=== PATIENT | male | born 1965 | race Caucasian/White ===

== ENCOUNTER 2018-02-14 18:00 | Outpatient (RCR) | payer OTHER, SELFPAY ==
--- NOTE | 2018-01-17 18:58 | HP.PTEVAL_ITS ---
Patient's Visit Information GEMA MORLEY is a 52 year old M referred to Physical Therapy by Bernardo Goldsmith with a diagnosis of B lateral epicondylitis. Date of Evaluation: 01/17/18 Physical Therapist: Marlon Vizcarra DPT, OC - Visit Plan Frequency: 1x/Week Duration: 4-6 Weeks Plan: 1x/week for 4-6 as needed... Pt doing excellent since injection adn ionto not covered by insurance so we darren hold on ionto. STM to B wrist extensors, strech same, progress eccentric wrist extensor strength(blue band) and postural strength. Appropriate education on activity modification. May do US nonthermal if pain returns and consider cock up brace if pain returns. - Subjective Subjective: Over a year ago, started with R elbow pain in response to overworking pulling rocks out of flower bed.. Injections really helpand had them last week. Left one only got severe 3 months after L but both may have started with rock pulling incident. He is right handed. Had 3 in the R and 2 in the left. No other treatments. 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 Enjoys biking as a hobby Has not started this year yet but did get sore last year. Tried brace but did not help. Sleep is interrupted when it is bad. - Pain R elbow Pain Intensity (Out of 10): 0 Pain Intensity Range: 0, 7 Comment: was constant eventually L elbow Pain Intensity (Out of 10): 0 Pain Intensity Range: 0, 5 - Objective R>L tender at wrist extensor origin and lat epicondyle elbow very slight. Some pain to stretch these muscles with end range wrist flexion and elbow extension but slight today. Full aROM at neck, shoulder and elbow and wrist. Strength at shoulder 4+ B, elbow 4+, wirsit flexion 4/5 B with mild discomfort transiently and 4+ flexion. 2/3 bi and tri reflexes. Sensation WNL to gross light touch in UE. - c/s compression. + R>L active and passive lat epicondylitis tests. - Goals Goal 1:: Pt feel 100% better for 4 weeks adn no pain. Goal Time Frame: 2-4 Weeks Goal 2:: Pt I in approp HEP for stretching and approiate strength Goal Time Frame: 4-6 Weeks Goal 3:: Full work and sleep schedule without problems. Goal Time Frame: 4-6 Weeks - Rehabilitation Potential Physical Therapy Diagnosis: B lateral epicondylitis. Rehabilitation Potential: Fair - Anticipated Interventions Patient/Client Instruction: Educate patient on: Condition, Plan of Care For the Purpose of:: To decrease pain Therapeutic Exercise to Include: Strength training, Flexibilty training, Passive ROM For the Purpose of:: To decrease pain, To improve muscle performance and motor function, To improve ability of physical actions for home/community/work/leisure Manual Therapy Techniques to Include: Soft tissue mobilization For the Purpose of:: To improve nutrient delivery to tissue, To increase oxygenation perfusion, To improve muscle performance and motor function Cryotherapy (ice pack, ice massage): Yes - as needed. Ultrasound (thermal/non thermal): Yes - nonthermal B elbow epicondyles lat Comment: if pain returns. For the Purpose of:: To decrease pain, To decrease swelling/inflammation Thank you for the opportunity to evaluate your patient. For Medicare and Medicare HMO plans, please review the plan of care and approve it. It will need to be FAXED BACK to us at [phone] for Medicare purposes. Please let me know if there are questions or concerns regarding this plan of care. Physician Signature: Date:
--- NOTE | 2018-02-14 18:58 | HP.PTDCSUM ---
HP - PT D/C Summary It has been my pleasure to treat GEMA MORLEY under orders from Bernardo Goldsmith, for the diagnosis of B lateral epicondylitis for a total of 5 visit(s). Discharge Date: 02/14/18 Please see the following information for a summary of their discharge status. - Subjective Subjective: 3-4/10 for the last couple days. Mild trouble sleeping last night. Mostly lateral pain but some medial also on R side, L side is 100%. Jogging is OK, walking brings more pain. Stretching and eccentric strengthening at home. Not scheduled with Dr. Goldsmith. Did start cutting grass with R UE gripper for self propelling, that may have made him worse last couple weeks. - Pain R elbow Pain Intensity (Out of 10): 3 L elbow Pain Intensity (Out of 10): 0 - Overall Improvement % Improvement: 60 - Objective Objective/Function: Slight tenderness R lat epicondyle at wrist extensor origin. Full wrist and elbow AROM without pain. 4+/5 wrist ext strength, others 5/5, slight discomfort with 3 digit extension. OVERALL DOING OK, SKEPTICAL THAT PAIN MAY RETURN. - Goals Goal 1:: Pt feel 100% better for 4 weeks adn no pain. Goal Progress: pain may be returning Goal 2:: Pt I in approp HEP for stretching and approiate strength Goal Progress: Goal Met Goal 3:: Full work and sleep schedule without problems. Goal Progress: Progressing - Plan Plan: D/C patient request. - D/C Information Discharge Comments: Pt doing well but skelptical that pain may be returning. He wishes to cotninue eccentric strength adn stretching and being mindful of ergonomics and f/u with doctor for next step if pain returns. Dry needling and cock up splint should be options if pain returns and no other medical options available. If there are questions or concerns regarding this patient's physical therapy, please feel free to call me at [phone]. Thank you for the referral of this patient. Sincerely, Marlon Vizcarra, DPT, OC
== END 2018-02-14 19:00 | disposition home or self-care (01) ==
LOC: PT 18:00
PROVIDERS: Family Provider Family Medicine; PCP Family Medicine; Visit Provider Family Medicine
DX: M77.12 Lateral epicondylitis, left elbow (principal); M77.11 Lateral epicondylitis, right elbow
CPT/HCPCS: 97110; 97140; 97161; 97530

== ENCOUNTER → 2018-11-14 14:46 | Outpatient (CLI) | payer OTHER, SELFPAY ==
--- NOTE | 2018-11-14 14:50 | RAD_ITS ---
STUDY: X-RAY - LEFT ELBOW REASON FOR EXAM: Male, 53 years old. Epicondylitis lateral left elbow TECHNIQUE: 3 view(s) of the elbow. COMPARISON: None. FINDINGS: Normal visualized humerus, radius and ulna. Normal radiocapitellar and ulnotrochlear articulations. The soft tissue structures are unremarkable. RAD/Elbow min 3 Views IMPRESSION: Normal x-ray examination of the elbow. Electronically Signed: Eduard Mandel DO at 8:29 EST Tel , Service support ,
== END ==
PROVIDERS: Family Provider Family Medicine; PCP Family Medicine; Referring Provider Family Medicine; Visit Provider Family Medicine
DX: M77.12 Lateral epicondylitis, left elbow (principal)
CPT/HCPCS: 73080

== ENCOUNTER → 2018-11-28 10:16 | Outpatient (CLI) | payer OTHER, SELFPAY ==
--- NOTE | 2018-11-28 10:45 | MRI_ITS ---
STUDY: MRI LEFT ELBOW REASON FOR EXAM: Left elbow pain, decreased arm strength for 2 years, no specific injury. TECHNIQUE: Standardized fat and water weighted pulse sequences were obtained in all 3 orthogonal planes. COMPARISON: Radiographs 11/14/2018. FINDINGS: Normal radio-capitellum articulation. Normal radial collateral ligamentous complex. There is peritendinitis and an undersurface partial tear of the common extensor tendon (inversion recovery coronal images 10-12). Normal ulnotrochlear articulation. Normal ulnar collateral ligamentous complex. Normal common flexor tendon. The cubital tunnel is normal, with a normal ulnar nerve. Normal biceps tendon and distal insertion. Normal lacertus fibrosis. Normal brachialis musculotendinous insertion. Normal triceps tendon and teno-osseous insertion. Normal olecranon process. The visualized distal humerus, proximal radius, and ulna are normal. The visualized muscles of the distal arm and proximal forearm are normal. The soft tissue structures are unremarkable. MRI/Upper Ext Joint Only(Routine) IMPRESSION: Lateral epicondylitis with peritendinitis and undersurface partial tear of the common extensor tendon. Electronically Signed: James Warren MD at 13:15 EST Tel , Service support ,
== END ==
PROVIDERS: Family Provider Family Medicine; PCP Family Medicine; Referring Provider Family Medicine; Visit Provider Family Medicine
DX: M77.12 Lateral epicondylitis, left elbow (principal)
CPT/HCPCS: 73221

== ENCOUNTER 2019-04-17 18:30 | Outpatient (RCR) | payer OTHER, SELFPAY ==
--- NOTE | 2019-02-08 18:09 | HP.OTEVAL ---
Patient's Visit Information GEMA MORLEY is a 53 year old M, referred to Occupational Therapy by SALENA MORELAND, with a diagnosis of L lateral epicondylitis. Date of Evaluation: 02/08/19 Occupational Therapist: Elizabeth Olsen - Subjective Subjective: Pt seen for initial occupational therapy evaulation for L lateral epicondylitis. Pt had sx 01/26/19 for L elbow lateral epicondylitis and has wrist brace to wear for 6 wks. Pt R hand dominent. 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 Pt very active running, biking and playing basketball prior to sx. - Pain L elbow 2 Pain Intensity Range: 2, 5 - Objective Objective/Observation: decreased AROM L elbow, increased pain with movement, edema L elbow - ROM Elbow: R -15/120, L 0/135 - Strength Demand Manager: R 87# L DNT Lateral Pinch: R 24#, L DNT Tripod Pinch: R 19 #, L DNT - Edema Elbow: L elbow edema - Sensation Sensation Comments: Numbness at incision sight L elbow - Quick DASH-Disab of Arm,Shoulder& Hand Quick DASH Score: 50.0000 - Goals Goal:: Pt will progress w/ L hand teacher of family and consumer science strength to 70# by d/c from OT services. Goal:: Pt will progress w/ L elbow extension AROM by 15' and L elbow flexion AROM by 15' to increase indep w/ functional living tasks. Goal:: Pt will demo no pain greater than 1/10 L elbow w/ movement by d/c from OT services. Goal:: Pt will be educated on scar mngmt techniques L elbow with good understanding and demo 100%x. Goal:: Pt will be educated on L UE HEP with good understanding and demo 100%x. - Rehabilitation General Assessment: Pt demo decreased AROM L elbow, decreased strength L UE, increased pain with movement of L UE. Pt would benefit from direct occupational therapy services to complete gentle ROM elbow/wrist, scar massage techniques to L elbow incision, L elbow and wrist strengthening when appropriate, pain control, decrease edema, educate on appropriate HEP. Rehabilitation Potential: Excellent - Anticipated Interventions Anticipated Interventions: A/AAROM/PROM, Strengthening, Edema Control, Scar Care, Modalities, Orthoses, Joint Protection/Energy Conservation, Education re Diagnosis, Home Program - Visit Plan Frequency: 1-2x /Week Duration: 4-6 Weeks General Plan: gentle ROM elbow/wrist, follow dr. stokes, scar massage techniques, L elbow, wrist strengthening when appropriate, pain control, decrease edema, educate on appropriate HEP. TEXT: Thank you for the opportunity to evaluate your patient. For Medicare and Medicare HMO plans, please review the plan of care and approve it. It will need to be FAXED BACK to us at [phone] for Medicare purposes. Please let me know if there are questions or concerns regarding this plan of care. Physician Signature: Date:
--- NOTE | 2019-03-07 14:24 | HP.OTCOM ---
OT Communication Note 03/07/[address] SALENA MORELAND Pt has been completing gentle ROM to L UE all planes. Pt demonstrates good understanding and follow through with ROM exercises to complete on his own. Pt educated on scar mngmt techniques and scar massage L elbow. Pt demo increased AROM L elbow 0'/142'. Sincerely, Elizabeth Olsen Contact Information
--- NOTE | 2019-03-21 12:29 | HP.OTREVAL ---
SALENA MORELAND, It has been my pleasure to treat GEMA MORLEY over the last 5 visits for L lateral epicondylitis. Please see the progress note below for an update on the occupational therapy plan of care! Subjective: Pt arrived stating no pain L elbow, states hasn't been doing his exercises at home because he has been busy moving things out of his fathers house, states his elbow hurt the night before but he had been moving a grandfather clock. Objective/Function: increase L UE strength, gambling box person strength L hand 87#, R hand 110#. Plan Frequency: 1-2x /Week Duration: 4-6 Weeks Plan: see re-serena Goals - Goals Goal:: Pt will progress w/ L hand gambling box person strength to 95# by d/c from OT services. Goal:: Pt will progress w/ L elbow extension AROM by 15' and L elbow flexion AROM by 15' to increase indep w/ functional living tasks. Goal:: Pt will demo no pain greater than 1/10 L elbow w/ movement by d/c from OT services. Goal:: Pt will be educated on scar mngmt techniques L elbow with good understanding and demo 100%x. Goal:: Pt will be educated on L UE HEP with good understanding and demo 100%x. Anticipated Interventions Anticipated Interventions: A/AAROM/PROM, Strengthening, Edema Control, Scar Care, Modalities, Orthoses, Joint Protection/Energy Conservation, Education re Diagnosis, Home Program Please do not hesitate to contact me at [phone] by phone or if you have questions or concerns regarding this new plan of care! Sincerely, Elizabeth Olsen
--- NOTE | 2019-09-05 14:32 | HP.OT.NRP ---
HP - Discharge Summary - Patient Information GEMA MORLEY was seen in my office for initial evaluation on 02/08/19. The following Plan of Care was established for this patient: Initial Frequency: 1-2x /Week Initial Duration: 4-6 Weeks Plan: see re-eval - Anticipated Interventions Anticipated Interventions: A/AAROM/PROM, Strengthening, Edema Control, Scar Care, Modalities, Orthoses, Joint Protection/Energy Conservation, Education re Diagnosis, Home Program This patient was last seen in our office 04/17/19. Pertinent comments regarding their Occupational therapy will appear below: Pt last seen for OT 04/17/19 for L lateral epicondyilitis repair. Pt doing well and no longer required skilled OT services, therefore pt non-returning OT. D/C OT POC. At this point I will be discontinuing this patient from occupational therapy. I would be happy to see this patient again in the future if found appropriate by the physician. Thank you! Elizabeth Olsen
== END 2019-04-17 19:00 | disposition home or self-care (01) ==
LOC: OT 18:30
PROVIDERS: Family Provider Family Medicine; PCP Family Medicine
DX: M77.12 Lateral epicondylitis, left elbow (principal)
CPT/HCPCS: 97110; 97140; 97166; 97168; 97530

== ENCOUNTER → 2020-07-10 13:45 | Outpatient (CLI) | payer OTHER, SELFPAY | PROVIDERS: PCP Family Medicine; Referring Provider Family Medicine; Visit Provider Family Medicine | DX: Z20.828 Contact with and (suspected) exposure to other viral communicable diseases (principal) | CPT/HCPCS: 87635; U0003 ==

== ENCOUNTER → 2022-01-19 | Outpatient (CLI) | payer OTHER, SELFPAY ==
[2022-01-19 17:45] LABS: Bacteria 0 SEEN /hpf (None Seen); Mucous, Urine 0 SEEN /hpf (<or=2+); Squamous Epithelial Cells - UA 0 SEEN /hpf (0-5); White Blood Cells 0 SEEN /hpf (0-5)
[2022-01-19 18:25] LABS: Color, Urine Yellow (Yellow); Glucose, Dipstick Normal (Normal); Ketone-Dipstick Negative (Negative); Leukocyte Esterase-Dipstick Negative /ul (Negative); Nitrite-Dipstick Negative (Negative); Occult Blood-Urine 50 /ul (Negative); Protein-Dipstick Negative (Negative); Urine Bilirubin Dipstick Negative (Negative); Urine Clarity Clear (Clear); Urine Urobilinogen Normal (Normal)
[2022-01-19 18:28] LABS: Red Blood Cells-Urine 0-5 SEEN /hpf (0-5)
== END | disposition home or self-care (01) ==
LOC: LABSPEC 17:44
PROVIDERS: PCP Family Medicine; Visit Provider Family Medicine
DX: R31.29 Other microscopic hematuria (principal)
CPT/HCPCS: 81001

== ENCOUNTER 2023-02-10 17:21 | Emergency (ER) | payer OTHER, SELFPAY ==
[2023-02-10 17:21] VITALS: BP 144/95; PULSE 125; RESP 16; TEMP 36.6; O2SAT 99
--- NOTE | 2023-02-10 17:36 | EKG12_ITS ---
Test Reason : REPEAT Blood Pressure : / mmHG Vent. Rate : 065 BPM Atrial Rate : 000 BPM P-R Int : 000 ms QRS Dur : 084 ms QT Int : 394 ms P-R-T Axes : 000 006 -13 degrees QTc Int : 409 ms Atrial fibrillation Abnormal ECG Confirmed by MICHAEL MUELLER, SY ([id number]), communications editor AMY SARABIA ([id number]) on 02/14/2023 11:43:12 AM Referred By: Confirmed By:SY RODRIGUEZ MD
[2023-02-10 17:38] VITALS: BP 141/102; PULSE 132; RESP 20; O2SAT 98
[2023-02-10] MEDS: 0.9% Normal Saline 1,000 ML 1000 ML IV (17:45)
[2023-02-10] MEDS: Aspirin 81 MG TAB.CHEW 324 MG PO (17:45)
--- NOTE | 2023-02-10 17:46 | RAD_ITS ---
STUDY: X-RAY CHEST REASON FOR EXAM: Male, 57 years old. chest pain TECHNIQUE: Single AP portable view of the chest. COMPARISON: None. FINDINGS: The lungs are clear and expanded. There is no demonstrated pleural abnormality. Normal size heart. Normal mediastinum and danielle. Normal visualized pulmonary arteries. Normal visualized aortic arch and descending thoracic aorta. There are diffuse degenerative changes of the visualized thoracic spine. Normal visualized ribs, clavicles, and shoulders. There is no demonstrated abnormality of the visualized soft tissue structures of the upper abdomen. RAD/Chest 1 View (Portable) IMPRESSION: No definite acute or significant abnormality seen. Electronically Signed: Alfred Moore MD at 18:04 EDT ,
[2023-02-10 18:08] LABS: Absolute Lymphocyte Count 1.83 X10^3/uL (0.83-4.51); Absolute Neutrophil Count 3.7 X10^3/uL (2.0-7.7); Basophil# 0.04 X10^3/uL; Basophil% 0.6 % (0-1); Eosinophil# 0.13 X10^3/uL; Eosinophils% 2.1 % (0-5); Hematocrit 44.6 % (40-54); Hemoglobin 14.7 g/dL (13.0-16.5); Lymphocyte # 1.83 X10^3/ul (0.83-4.51); Lymphocyte % 28.9 % (19-41); Mean Corpuscular Hgb 30.8 pg (27.0-32.0); Mean Corpuscular Volume 93.3 fL (80-94); Mean Platelet Vol. 10.4 fl (6.2-12.0); Monocyte# 0.58 X10^3/uL; Monocyte% 9.2 % (0-10); NRBC Flagged by Analyzer 0 % (0-5); Neutrophil # 3.73 X10^3/uL (2.7-7.7); Neutrophil % 58.9 % (47-70); Platelet Count 315 K/mm3 (150-450); RBC Distribution Width CV 12.8 % (11.6-14.6); RBC Distribution Width SD 43.8 fl (35.1-43.9); Red Blood Count 4.78 M/mm3 (4.6-6.2); White Blood Count 6.3 K/mm3 (4.4-11.0)
--- NOTE | 2023-02-10 18:19 | ED.VIS.CHEST ---
HPI History of Present Illness Chief Complaint: Palpitations Narrative Narrative: 57-year-old male presenting with new onset A-fib. He was diagnosed with this in his primary care physician's office today. Patient states that he noted that the heart rate was fast starting on Tuesday. He stated that he has not slept in days because his heart rates been racing. He does note that he feels lightheaded when he stands. Tuesday he reported 30 minutes of chest pressure in the evening. He describes this as pressure. Patient states he has not had a return of the chest pain. Patient states he has not been able to sleep well because of his rapid heart rate. Patient denies cardiac history. He states he is otherwise healthy. He denies any other medical problems. [facility] Medical History Afib Home Medications aspirin 81 mg capsule 81 mg PO DAILY #30 caps 02/10/23 [Rx Last Taken Unknown] diltiazem HCl 120 mg capsule,extended release 24 hr (Cardizem CD) 120 mg PO DAILY #30 caps 02/10/23 [Rx Last Taken Unknown] Allergy/AdvReac Type Severity Reaction Status Date / Time No Known Allergies Allergy Verified 02/10/23 17:23 Social History Smoking Status: Current every day smoker tobacco type: smokeless tobacco ROS ROS ED Constitutional Constitutional ED: Denies chills or fever(s) Eyes Eyes: Denies blurry vision or change in vision ENT ENT ED: Denies rhinorrhea or sore throat Cardiovascular Cardiovascular: Reports chest pain, palpitations and racing heartbeat Respiratory/Chest Respiratory/Chest: Denies cough or dyspnea Gastrointestinal Gastrointestinal: Denies abdominal pain or constipation Genitourinary Genitourinary ED: Denies dysuria or hematuria Musculoskeletal Musculoskeletal: Denies arthralgias or back pain Integumentary Denies abscess or Abrasions Neurologic Neurologic: Denies headache(s) or paresthesias Psychiatric Psychiatric: Denies anxiety or depression EXAM Physical Exam Const Vital Signs: 02/10/23 17:21 02/10/23 17:38 02/10/23 19:52 Temperature 98 F Temperature Source Temporal Pulse Rate 125 H 132 H 98 Respiratory Rate 16 20 H 15 Blood Pressure 144/95 H 141/102 H 123/92 H Blood Pressure Mean 111 115 102 Pulse Ox 99 98 98 Oxygen Delivery Method Room Air Room Air Room Air 02/10/23 21:09 Temperature Temperature Source Pulse Rate 107 H Respiratory Rate Blood Pressure 128/91 H Blood Pressure Mean 103 Pulse Ox Oxygen Delivery Method Positive well nourished General Appearance ED: NAD HEENT Reports moist mucous membranes Eyes PERRL and EOMs intact bilaterally Neck no lymphadenopathy Resp Effort and Inspection: respiratory distress and pain with movement Auscultation: Negative for rales, rhonchi or wheezes Cardio Rate: tachycardic Rhythm: abnormal rhythm irregularly irregular Extremity normal to inspection General Extremety ED: Negative for edema or pulses abnormal General Extremity: Negative for edema or pulses abnormal Neuro oriented x3 and CN's II-XII intact bilaterally Sensorium / Orientation: awake and alert Psych mental status grossly normal Skin no rashes or lesions noted Heart Score History: Slightly/Non-Suspicious ECG: Normal Age: >45 - <65 years Risk Factors: 1 or 2 Risk Factors Troponin: </= Normal Limit Score: 2 MDM MDM MDM Narrative Medical decision making narrative: 57-year-old male presenting with tachycardia and new onset A-fib. He had some chest pressure on Tuesday but other than that she did not have any chest pains. She had some lightheadedness and feelings of shortness of breath when he gets up and ambulates. He also states he has been sleeping poorly because his heart rates been fast. Differential includes but is not limited to ACS, PE, aortic dissection, pneumonia, atrial fibrillation. Patient well-appearing but is tachycardic. EKG on my interpretation shows atrial fibrillation at a rate of 141 bpm without sign of ischemic change. Patient medicated with 20 mg of Cardizem and his heart rate came down to 65. His EKG on my interpretation shows A-fib at 65 bpm without sign of ischemic change. Chest x-ray on my interpretation shows no acute cardiopulmonary process. CBC was obtained to assess for white blood cell count, hemoglobin, platelet, differential. BMP to assess renal function, electrolytes, glucose, anion gap. CBC, BMP, normal. High-sensitivity troponin 13 and delta troponin 14. There is no significant interval change. D-dimer is negative at 0.46. Patient's heart rate is under control. He feels better. I spoke with Dr. Martin and he recommended having the patient follow-up with the heart group as an outpatient. He recommended Cardizem CD1 120 mg p.o. daily and 81 mg baby aspirin. Since the patient has no significant medical history he does not need to be anticoagulated. Patient amenable to this. He is given return precautions. Impression: 1. Chest pain 2. New onset A-fib Lab Data Attestation: I reviewed the patient's lab results. Labs: Laboratory Results - last 24 hr 02/10/23 02/10/23 02/10/23 17:45 17:45 17:45 WBC 6.3 RBC 4.78 Hgb 14.7 Hct 44.6 MCV 93.3 MCH 30.8 MCHC 33.0 RDW Std Deviation 43.8 RDW Coeff of Meena 12.8 Plt Count 315 MPV 10.4 Immature Gran % (Auto) 0.300 Neut % (Auto) 58.9 Lymph % (Auto) 28.9 [place] % (Auto) 9.2 Eos % (Auto) 2.1 Baso % (Auto) 0.6 Absolute Neuts (auto) 3.7 Absolute Lymphs (auto) 1.83 Nucleated RBC % 0 D-Dimer Quant (PE/DVT) 0.46 Sodium 141 Potassium 3.8 Chloride 108 H Carbon Dioxide 22.0 Anion Gap 11 BUN 23 H Creatinine 0.99 Estim Creat Clear Calc 12.03 Est GFR (MDRD) Af Amer 100 Est GFR (MDRD) Non-Af 83 BUN/Creatinine Ratio 23.3 H Glucose 96 Calcium 8.8 Troponin I High Sens 13 02/10/23 19:55 WBC RBC Hgb Hct MCV MCH MCHC RDW Std Deviation RDW Coeff of Meena Plt Count MPV Immature Gran % (Auto) Neut % (Auto) Lymph % (Auto) [place] % (Auto) Eos % (Auto) Baso % (Auto) Absolute Neuts (auto) Absolute Lymphs (auto) Nucleated RBC % D-Dimer Quant (PE/DVT) Sodium Potassium Chloride Carbon Dioxide Anion Gap BUN Creatinine Estim Creat Clear Calc Est GFR (MDRD) Af Amer Est GFR (MDRD) Non-Af BUN/Creatinine Ratio Glucose Calcium Troponin I High Sens 14 Radiography Diagnostic Testing: Clinical Impression(s) from Imaging Studies Chest X-Ray 02/10/23 17:46 IMPRESSION: No definite acute or significant abnormality seen. Electronically Signed: Alfred Moore MD at 18:04 EDT , Discharge Plan Triage Chief Complaint: Palpitations ED Provider: Gibran Worthington Dx/Rx/DC Orders Instructions: ED Atrial Flutter Prescriptions: New diltiazem HCl [Cardizem CD] 120 mg capsule,extended release 24hr 120 mg PO DAILY Qty: 30 0RF aspirin 81 mg capsule 81 mg PO DAILY Qty: 30 0RF Primary Care Provider: Jose Goldsmith Referrals: Lula Paredes MD [Med Staff - Active Staff] - As soon as possible Jose Goldsmith MD [Primary Care Provider] - Disposition Disposition: Home, Self Care
[2023-02-10] MEDS: dilTIAZem 25 MG/5 ML Vial 20 MG IV BOLUS (18:27)
[2023-02-10 18:29] LABS: D-Dimer Quantitative (DVT/PE) 0.46 FEU/ug/m (0.27-0.49)
[2023-02-10 18:38] LABS: Anion Gap 11 (5-15); BUN 23 mg/dL (7-18); BUN/Creat Ratio 23.3 RATIO (10-20); Calcium,Total 8.8 mg/dL (8.5-10.1); Chloride 108 mmol/L (98-107); Creatinine, Serum 0.99 mg/dL (0.70-1.30); EST Glomerular Filtration Rate 83 mL/min (>60); Est Glom Filt Rate - Afr Amer 100 mL/min (>60); Estimated Creatinine Clearance 12.03 ml/min; Glucose 96 mg/dL (74-106); Potassium 3.8 mmol/L (3.5-5.1); Sodium Level 141 mmol/L (136-145); Troponin-I HS (w/2H Reflex) 13 pg/mL (3.0-78.0)
--- NOTE | 2023-02-10 18:48 | EKG12_ITS ---
Test Reason : AFIB Blood Pressure : / mmHG Vent. Rate : 141 BPM Atrial Rate : 187 BPM P-R Int : 000 ms QRS Dur : 082 ms QT Int : 316 ms P-R-T Axes : 000 020 -35 degrees QTc Int : 484 ms Atrial fibrillation Nonspecific ST abnormality Abnormal ECG Confirmed by MICHAEL MUELELR, SY ([id number]), editorial specialist AMY SARABIA ([id number]) on 02/14/2023 11:43:36 AM Referred By: BASSEM Confirmed By:SY RODRIGUEZ MD
[2023-02-10 19:52] VITALS: BP 123/92; PULSE 98; RESP 15; O2SAT 98
[2023-02-10 20:00] LABS: Reflex Troponin-HS? (from REC) Y
[2023-02-10 20:28] LABS: Troponin-I HS 14 pg/mL (3.0-78.0)
[2023-02-10] MEDS: 0.9% Normal Saline 1,000 ML 999 ML IV (20:46)
[2023-02-10 21:09] VITALS: BP 128/91; PULSE 107
[2023-02-10] MEDS: dilTIAZem CD 120 MG Capsule PO (22:08)
== END 2023-02-10 22:09 | disposition home or self-care (01) ==
PROVIDERS: Emergency Provider Student in an Organized Health Care Education/Training Program; PCP Family Medicine; Visit Provider Student in an Organized Health Care Education/Training Program
DX: R07.9 Chest pain, unspecified (principal); I48.91 Unspecified atrial fibrillation; F17.220 Nicotine dependence, chewing tobacco, uncomplicated
CPT/HCPCS: 71045; 80048; 84484; 85025; 85379; 93005; 96360; 96361; 99285; J7030; A4216

== ENCOUNTER → 2023-03-03 | Outpatient (CLI) | payer OTHER, SELFPAY ==
--- NOTE | 2023-03-03 07:59 | ECHOCS_ITS ---
Reason For Study: AFIB WITH RVR Procedure This was a 2D Doppler, Color Flow transthoracic echocardiogram. The study was technically difficult. Contrast injection was performed. Exam performed in department. Left Ventricle Normal size and thickness. The left ventricular ejection fraction is 60 %. Normal diastology for age. Right Ventricle Normal right ventricle. Atria The left atrium is moderately enlarged. Normal right atrium. Bubble contrast study is negative for PFO/ASD. Mitral Valve Trivial mitral valve insufficiency. Tricuspid Valve Mild tricuspid valve insufficiency. Normal pulmonary artery pressure. Aortic Valve Normal aortic valve. Pulmonic Valve The pulmonic valve is not well visualized. Trivial pulmonic valve insufficiency. Great Vessels Normal sized aortic root. Pericardium/Pleural No pericardial effusion. Medication 22 gauge I.V. with prn adaptor inserted into right arm. Diluted definity 2.5ml given slow IV push to enhance endocardial definition. Performed a rapid injection of agitated mix of 9 cc saline and 1cc air to assess for atrial septal defect. MMode/2D Measurements & Calculations LVIDd: 5.2 cm IVSd: 1.1 cm Ao root diam: 3.2 cm LVIDs: 3.2 cm LVPWd: 0.85 cm LA dimension: 4.6 cm RVDd: 3.4 cm FS: 37.4 % LAV(MOD-bp): 70.5 ml LVAd ap4: 29.7 cm2 SV(MOD-sp4): 59.9 ml LAV(MOD-bp) Indexed: 31.2 ml/m2 LVLd ap4: 8.6 cm LAV(MOD-sp2): 69.4 ml EDV(MOD-sp4): 87.3 ml LAV(MOD-sp4): 71.4 ml EDV(sp4-el): 86.8 ml LVAs ap4: 15.5 cm2 LVLs ap4: 7.6 cm ESV(MOD-sp4): 27.4 ml ESV(sp4-el): 26.8 ml EF(MOD-sp4): 68.6 % EF(sp4-el): 69.1 % SV(sp4-el): 60.0 ml LA A4 area: 23.1 cm2 RA A4 area: 21.4 cm2 TAPSE: 2.3 cm Time Measurements MV dec time: 0.19 sec Doppler Measurements & Calculations MV E max bao: 77.4 cm/sec Lat Peak E' Bao: 12.2 cm/sec Med Peak E' Bao: 13.6 cm/sec MV A max bao: 46.7 cm/sec E/E' lat: 6.3 E/E' med: 5.7 MV E/A: 1.7 MV V2 max: 82.6 cm/sec MV P1/2t max bao: 81.7 cm/sec Ao V2 max: 118.1 cm/sec MV max P.7 mmHg MV P1/2t: 58.8 msec Ao max P.6 mmHg MV V2 mean: 36.1 cm/sec Ao V2 mean: 80.4 cm/sec MV mean P.68 mmHg MV dec slope: 406.7 cm/sec2 Ao mean P.0 mmHg MV V2 VTI: 20.7 cm MVA(P1/2t): 3.7 cm2 Ao V2 VTI: 25.6 cm AV (velocity ratio): 0.83 LV V1 max: 100.6 cm/sec PA V2 max: 105.9 cm/sec PI end-d bao: 99.9 cm/sec LV V1 max P.0 mmHg PA V2 mean: 72.6 cm/sec LV V1 mean P.1 mmHg LV V1 mean: 68.2 cm/sec LV V1 VTI: 21.3 cm TR max bao: 241.3 cm/sec TR max P.3 mmHg ECHO/Echo Complete W/ Contrast Interpretation Summary The left ventricular ejection fraction is 60 %. Mild tricuspid valve insufficiency. The left atrium is moderately enlarged. Ordering Physician: Jose Goldsmith Referring Physician: Jose Goldsmith Performed By: Que Bautista RCS
== END | disposition home or self-care (01) ==
LOC: CVS 07:59
PROVIDERS: PCP Family Medicine; Referring Provider Family Medicine; Visit Provider Family Medicine
DX: I48.91 Unspecified atrial fibrillation (principal); I07.1 Rheumatic tricuspid insufficiency
CPT/HCPCS: 93306; Q9957; A4216; C8929

== ENCOUNTER → 2023-04-12 | Outpatient (CLI) | payer OTHER, SELFPAY ==
--- NOTE | 2023-04-13 12:48 | STRESSREP ---
Stress Test Report Date: 04/12/2023 Procedure: Exercise tolerance test/imaging study Indications: Arrhythmia Consent: Per the patient Procedure: The patient exercised on a Dariel protocol for 9 minutes achieving a peak heart rate of 144 bpm (88% predicted maximal heart rate) with a peak blood pressure 164/74 mmHg and a peak MET capacity of 10.1 METs. The baseline ECG demonstrated normal sinus rhythm. The peak exercise ECG demonstrated no ischemic changes. There were no cardiac dysrhythmias pretest, during exercise, or recovery. The functional capacity was considered adequate. There was no complaint of chest discomfort during exercise or recovery. The examination was discontinued secondary to target heart rate being achieved. The patient was injected with 14.2 mCi of technetium 99m Cardiolite and subsequently rest SPECT Cardiolite nuclear imaging was obtained in the horizontal long, vertical long, and short axis views. Post-exercise, the patient was injected with 44.7 mCi of technetium 99m Cardiolite and subsequently stress SPECT Cardiolite nuclear imaging was obtained in the horizontal long, vertical long, and short axis views. A gated Cardiolite study at peak stress was obtained. Rest and stress SPECT Cardiolite nuclear imaging status post realignment, normalization, and attenuation correction, demonstrates the appearance of relative uniform tracer uptake and myocardial perfusion appearing within normal limits. There is end systolic thickening and brightening. The gated Cardiolite study demonstrates myocardial thickening and inward wall motion. The reported LVEF is 79%. Impression: 1. Technically adequate (percent predicted maximal heart rate greater than 85%) exercise tolerance test 2. Peak exercise ECG with no ischemic changes 3. There were no cardiac dysrhythmias pretest, during exercise, or recovery 4. Rest and stress SPECT Cardiolite nuclear imaging demonstrate no fixed or reversible perfusion defect. 5. The gated Cardiolite study reports an LVEF of 79%. This note was generated with [employer] software. It may contain incorrect words, spelling, and punctuation that were not noted in checking the note before signing.
== END | disposition home or self-care (01) ==
PROVIDERS: PCP Family Medicine; Referring Provider Internal Medicine Cardiovascular Disease; Visit Provider Internal Medicine Cardiovascular Disease
DX: I48.91 Unspecified atrial fibrillation (principal); I51.7 Cardiomegaly
CPT/HCPCS: 78452; 93017; 93225; 93226; A9500; A4216

== ENCOUNTER → 2023-08-08 | Outpatient (CLI) | payer OTHER, SELFPAY ==
[2023-08-08 07:39] LABS: Anion Gap 4 (5-15); BUN 19 mg/dL (7-18); Calcium,Total 8.5 mg/dL (8.5-10.1); Chloride 110 mmol/L (98-107); Creatinine, Serum 0.95 mg/dL (0.70-1.30); EST Glomerular Filtration Rate 86 mL/min (>60); Est Glom Filt Rate - Afr Amer 104 mL/min (>60); Glucose 112 mg/dL (74-106); Potassium 4.1 mmol/L (3.5-5.1); Sodium Level 141 mmol/L (136-145)
== END | disposition home or self-care (01) ==
PROVIDERS: PCP Family Medicine; Referring Provider Internal Medicine Cardiovascular Disease; Visit Provider Internal Medicine Cardiovascular Disease
DX: I10 Essential (primary) hypertension (principal)
CPT/HCPCS: 36415; 80048